=== PATIENT | female | born 1995 | race Caucasian/White ===

== ENCOUNTER → 2021-03-14 | Outpatient (CLI) | payer OTHER ==
[~2021-03-14] MED LIST: KEFLEX CAP 500500 MG PO; PHENERGAN 25 MG25 M1 PO; PRENATAL VITAM1 EAC8 PO; ZITHROMAX250 MG PO; ZOFRAN ODT 4 MG4 MG SL
== END ==
LOC: EROP 05:16 → EDSTATUS 08:37
DX: Z20.822 Contact with and (suspected) exposure to COVID-19 (principal)
CPT/HCPCS: U0002

== ENCOUNTER 2021-06-12 22:44 | Emergency (ER) | payer BC ==
[2021-06-12 23:44] LABS: HEMOGLOBIN 14.4 gm/dl (12.3-15.3); RED BLOOD COUNT 4.99 M/UL (4.00-5.10); WHITE BLOOD COUNT 10.1 K/UL (4.5-11.0)
[2021-06-13 00:12] LABS: BUN/CREATININE RATIO 14 (0-10)
== END 2021-06-13 03:30 | disposition home or self-care (01) ==
LOC: ER1 22:44
PROVIDERS: Family Medicine
DX: R10.11 Right upper quadrant pain (principal)
CPT/HCPCS: 80053; 81001; 83690; 84703; 85025; 85379; 96374; 99284; J1885; Q9967

== ENCOUNTER → 2021-06-13 | Outpatient (CLI) | payer BC ==
[2021-06-13 17:07] LABS: RED BLOOD COUNT 4.68 M/UL (4.00-5.10)
[2021-06-13 17:08] LABS: WHITE BLOOD COUNT 4.8 K/UL (4.5-11.0)
[2021-06-13 17:35] LABS: BUN/CREATININE RATIO 6 (0-10)
== END ==
LOC: LAB 16:39
PROVIDERS: Physician Assistant Medical
DX: R11.2 Nausea with vomiting, unspecified (principal)
CPT/HCPCS: 36415; 80053; 85025

== ENCOUNTER → 2021-06-19 | Outpatient (CLI) | payer BC ==
[2021-06-19 16:46] LABS: HEMOGLOBIN 13.2 gm/dl (12.3-15.3); RED BLOOD COUNT 4.56 M/UL (4.00-5.10); WHITE BLOOD COUNT 8.5 K/UL (4.5-11.0)
[2021-06-19 16:49] LABS: BUN/CREATININE RATIO 12 (0-10)
[2021-06-20 16:14] LABS: EBV AB VCA, IGG 89.4 U/mL (0.0-17.9); EBV AB VCA, IGM <36.0 U/mL (0.0-35.9)
== END ==
LOC: LAB 15:36
PROVIDERS: Physician Assistant Medical
DX: R11.2 Nausea with vomiting, unspecified (principal); R74.8 Abnormal levels of other serum enzymes
CPT/HCPCS: 36415; 80053; 85025

== ENCOUNTER → 2021-08-24 | Outpatient (CLI) | payer BC ==
[2021-08-24 05:48] LABS: HEMOGLOBIN 13.9 gm/dl (12.3-15.3); RED BLOOD COUNT 4.65 M/UL (4.00-5.10); WHITE BLOOD COUNT 10.4 K/UL (4.5-11.0)
[2021-08-24 06:04] LABS: BUN/CREATININE RATIO 18 (0-10)
== END ==
LOC: LAB 04:22
PROVIDERS: Physician Assistant Medical
DX: R74.8 Abnormal levels of other serum enzymes (principal)
CPT/HCPCS: 80053; 85025

== ENCOUNTER → 2021-09-02 | Outpatient (CLI) | payer BC | LOC: US 09:15 | DX: R74.8 Abnormal levels of other serum enzymes (principal) | CPT/HCPCS: 76700 ==